=== PATIENT | male | born 1935 | race Caucasian/White ===

== ENCOUNTER 2020-12-21 14:02 | Inpatient (IN) ==
[2020-12-21 15:10] LABS: Bilirubin,Urine Negative (Negative); Blood, Urine Negative (Negative); Glucose,Urine (UA) Negative (Negative); Ketones,Urine Negative (Negative); Mucus,Urine Occasional /LPF (Occasional); Nitrite,Urine Negative (Negative); Protein,Urine Negative; RBC,Urine 1 /HPF (0-4); Squamous Epithelial Cell,Urine Occasional /HPF (0-10); Urine Appearance CLEAR (Clear); Urine Color Straw (Yellow); Urine Specific Gravity 1.006 (1.001-1.035); Urine Urobilinogen < 2.0 EU/DL (0.2-1.0)
[2020-12-21] MEDS ORDERED: ENOXAPARIN 100 MG/ML SYRINGE SUBCUT STA (16:19)
[2020-12-21] MEDS ORDERED: ASPIRIN 325 MG TABLET PO STA (16:19)
[2020-12-21 16:33] LABS: Basophils # 0.1 10*3/uL (0.0-0.2); Basophils % 0.5 % (0.0-0.8); Eosinophils # 0.2 10*3/uL (0.0-0.87); Eosinophils % 1.7 % (0.00-10.9); Hematocrit 44.8 VOL% (42.0-52.0); Hemoglobin 14.1 GM/DL (14.0-18.0); Immature Granulocytes % 0.8 %; Lymphocytes % 16.5 % (21.2-54.2); Mean Corpuscular HGB Conc 31.5 GM/DL (32-36); Mean Corpuscular Volume 91.6 FL (87-102); Mean Platelet Volume 10.5 FL (9.6-12.0); Monocytes % 9.5 % (1.7-12.7); Platelet Count 247 T/CUMM (130-400); Red Blood Count 4.89 MC/CUMM (3.8-5.5); Red Cell Distribution Width 14.8 % (9.3-17.3); White Blood Count 12.1 T/CUMM (4-12)
[2020-12-21 17:51] LABS: INR 1.1
[2020-12-21] MEDS ORDERED: DEXTROSE 50% 25 GM/50 ML VIAL IV PRN (17:51)
[2020-12-21] MEDS ORDERED: ONDANSETRON 4 MG/2 ML VIAL IV PRN (17:51)
[2020-12-21] MEDS ORDERED: GLUCAGON 1 MG VIAL IM PRN (17:51)
[2020-12-21] MEDS ORDERED: METHOCARBAMOL 500 MG TABLET PO PRN (18:00)
[2020-12-21 18:01] LABS: Albumin 3.5 G/DL (3.4-5.0); Bilirubin,Total 0.8 MG/DL (0.20-1.00); Calcium 8.9 MG/DL (8.5-10.1); Osmolality,Calculated 282.4 MOS/KG (273-304); Potassium 3.3 MMOL/L (3.5-5.1); Total Protein 7.9 G/DL (6.4-8.2)
[2020-12-21] MEDS ORDERED: FUROSEMIDE 40 MG/4 ML VIAL IV ONE (19:00)
[2020-12-21] MEDS: AZITHROMYCIN INJ 500 MG in SODIUM CHLORIDE 0.9% 250 ML IV SCH (19:30)
[2020-12-21] MEDS: ALBUTEROL/IPRATROPIUM 3 ML NEB RESP TX SCH (19:40)
[2020-12-21] MEDS ORDERED: methylPREDNISolone SOD SUC 125 MG/2 ML VIAL ONE (20:00)
[2020-12-21] MEDS: cefTRIAXone 1,000 MG in SODIUM CHLORIDE 0.9% 100 ML IV SCH (20:04)
[2020-12-21] MEDS: CLOPIDOGREL 75 MG TABLET PO SCH (20:04)
[2020-12-21] MEDS: methylPREDNISolone SOD SUC 40 MG/1 ML VIAL IV SCH (20:05)
[2020-12-21] MEDS ORDERED: APIXABAN 2.5 MG TABLET PO SCH (21:00)
[2020-12-22 01:16] LABS: Basophils % 0.3 % (0.0-0.8); Eosinophils % 0.3 % (0.00-10.9); Hematocrit 41.7 VOL% (42.0-52.0); Hemoglobin 13.1 GM/DL (14.0-18.0); Immature Granulocytes % 1.5 %; Immature Granulocytes Absolute 0.14 #; Lymphocytes # 0.9 10*3/uL (1.4-4.0); Lymphocytes % 9.4 % (21.2-54.2); Mean Corpuscular HGB Conc 31.4 GM/DL (32-36); Mean Corpuscular Volume 90.5 FL (87-102); Mean Platelet Volume 10.1 FL (9.6-12.0); Monocytes % 2.8 % (1.7-12.7); Neutrophils % 85.7 % (38.7-73.9); Platelet Count 228 T/CUMM (130-400); Red Blood Count 4.61 MC/CUMM (3.8-5.5); Red Cell Distribution Width 14.9 % (9.3-17.3); White Blood Count 9.2 T/CUMM (4-12)
[2020-12-22] MEDS: DONEPEZIL 10 MG TABLET PO SCH ×2 (01:23→20:55)
[2020-12-22] MEDS: DOCUSATE SODIUM 100 MG CAPSULE PO SCH ×2 (01:24→20:55)
[2020-12-22] MEDS: rOPINIRole 1 MG TABLET PO SCH ×2 (01:24→20:54)
[2020-12-22] MEDS: SUCRALFATE 1 GM TABLET PO SCH ×6 (01:24→20:55)
[2020-12-22] MEDS: ATORVASTATIN 20 MG TABLET PO SCH ×2 (01:24→20:55)
[2020-12-22] MEDS: QUEtiapine 25 MG TABLET PO SCH ×3 (01:25→20:55)
[2020-12-22 01:33] LABS: Calcium 8.7 MG/DL (8.5-10.1); Osmolality,Calculated 280.8 MOS/KG (273-304); Potassium 3.9 MMOL/L (3.5-5.1); Thyroid Stimulating Hormone 1.51 uIU/ml (0.358-3.74)
[2020-12-22] MEDS: ALBUTEROL/IPRATROPIUM 3 ML NEB RESP TX SCH ×4 (01:46→20:08)
[2020-12-22] MEDS: methylPREDNISolone SOD SUC 40 MG/1 ML VIAL IV SCH ×3 (02:52→18:30)
[2020-12-22] MEDS ORDERED: FUROSEMIDE 40 MG/4 ML VIAL IV ONE (08:30)
[2020-12-22] MEDS ORDERED: APIXABAN 2.5 MG TABLET PO SCH (09:00)
[2020-12-22] MEDS: FLUTICASONE 110 MCG/PUFF INHALER 12 GM INH SCH (09:30)
[2020-12-22] MEDS ORDERED: lisinopriL 2.5 MG TABLET PO SCH (09:30)
[2020-12-22] MEDS: MONTELUKAST 10 MG TABLET PO SCH (09:38)
[2020-12-22] MEDS: METOPROLOL SUCCINATE XL 25 MG TABLET PO SCH (09:38)
[2020-12-22] MEDS: FUROSEMIDE 40 MG TABLET PO SCH (09:38)
[2020-12-22] MEDS: PANTOPRAZOLE 40 MG TABLET PO SCH (09:38)
[2020-12-22] MEDS ORDERED: FUROSEMIDE 40 MG TABLET PO SCH (12:00)
[2020-12-22] MEDS ORDERED: SIMETHICONE CHEW 125 MG TABLET PO SCH (14:00)
[2020-12-22] MEDS ORDERED: MAGNESIUM SULF RIDER 2 GM/50 ML PREMIX IV PRN (14:13)
[2020-12-22] MEDS ORDERED: diphenhydrAMINE CAP 25 MG CAPSULE PO ONE (14:15)
[2020-12-22] MEDS: FUROSEMIDE 80 MG TABLET PO SCH (15:57)
[2020-12-22] MEDS: SODIUM CHLORIDE 0.9% 1,000 ML IV SCH (15:57)
[2020-12-22] MEDS ORDERED: ENOXAPARIN 40 MG/0.4 ML SYRINGE SUBCUT SCH (16:30)
[2020-12-22] MEDS: CLOPIDOGREL 75 MG TABLET PO SCH (18:29)
[2020-12-22] MEDS: cefTRIAXone 1,000 MG in SODIUM CHLORIDE 0.9% 100 ML IV SCH (18:29)
[2020-12-22] MEDS: AZITHROMYCIN INJ 500 MG in SODIUM CHLORIDE 0.9% 250 ML IV SCH (20:56)
[2020-12-23] MEDS: ALBUTEROL/IPRATROPIUM 3 ML NEB RESP TX SCH ×4 (01:07→19:30)
[2020-12-23] MEDS: methylPREDNISolone SOD SUC 40 MG/1 ML VIAL IV SCH ×3 (03:20→18:32)
[2020-12-23 04:47] LABS: Basophils % 0.1 % (0.0-0.8); Hematocrit 40.9 VOL% (42.0-52.0); Hemoglobin 12.9 GM/DL (14.0-18.0); Immature Granulocytes % 1.2 %; Immature Granulocytes Absolute 0.23 #; Lymphocytes # 1.1 10*3/uL (1.4-4.0); Lymphocytes % 5.9 % (21.2-54.2); Mean Corpuscular HGB Conc 31.5 GM/DL (32-36); Mean Corpuscular Volume 90.3 FL (87-102); Mean Platelet Volume 10.6 FL (9.6-12.0); Monocytes % 3.2 % (1.7-12.7); Neutrophils % 89.6 % (38.7-73.9); Platelet Count 260 T/CUMM (130-400); Red Blood Count 4.53 MC/CUMM (3.8-5.5); Red Cell Distribution Width 14.5 % (9.3-17.3); White Blood Count 18.9 T/CUMM (4-12)
[2020-12-23 05:04] LABS: Calcium 9.1 MG/DL (8.5-10.1); Osmolality,Calculated 284.8 MOS/KG (273-304); Potassium 3.2 MMOL/L (3.5-5.1)
[2020-12-23 05:12] LABS: Risk Ratio 2.92; VLDL Cholesterol 13.2 MG/DL
[2020-12-23] MEDS: POTASSIUM CHLORIDE RIDER 10 MEQ/100 ML PREMIX IV PRN ×2 (05:35→07:13)
[2020-12-23] MEDS ORDERED: DIAZEPAM 5 MG TABLET PO ONE (06:30)
[2020-12-23] MEDS ORDERED: diphenhydrAMINE CAP 25 MG CAPSULE PO ONE (06:30)
[2020-12-23] MEDS ORDERED: POTASSIUM CHLORIDE 20 MEQ TABLET PO ONE (07:04)
[2020-12-23] MEDS ORDERED: HEPARIN/NACL 0.9% 2 UNITS/ML 2,000 UNIT/1,000 ML BAG IV ONE (07:27)
[2020-12-23] MEDS: SUCRALFATE 1 GM TABLET PO SCH ×5 (07:39→21:33)
[2020-12-23] MEDS ORDERED: HYDROmorphone 2 MG/1 ML VIAL ONE (07:51)
[2020-12-23] MEDS ORDERED: MIDAZOLAM 2 MG/2 ML VIAL ONE ×3 (07:52→11:20)
[2020-12-23] MEDS ORDERED: diphenhydrAMINE 50 MG/1 ML VIAL ONE ×2 (08:08→11:39)
[2020-12-23] MEDS ORDERED: HEPARIN 5,000 UNIT/1 ML VIAL ONE (08:22)
[2020-12-23] MEDS ORDERED: predniSONE 20 MG TABLET PO SCH (09:00)
[2020-12-23] MEDS ORDERED: HEPARIN/NACL 0.9% 2 UNITS/ML 1,000 UNIT/500 ML BAG IV ONE (09:31)
[2020-12-23] MEDS ORDERED: TISSUE ADHESIVE 1 EACH APPLICATOR TOP ONE (09:31)
[2020-12-23] MEDS ORDERED: fentaNYL 100 MCG/2 ML VIAL ONE (10:26)
[2020-12-23] MEDS ORDERED: ceFAZolin 1,000 MG VIAL IRRIG ONE (10:29)
[2020-12-23] MEDS ORDERED: ceFAZolin 1,000 MG VIAL ONE (10:34)
[2020-12-23] MEDS: FLUTICASONE 110 MCG/PUFF INHALER 12 GM INH SCH (16:53)
[2020-12-23] MEDS: METOPROLOL SUCCINATE XL 25 MG TABLET PO SCH (16:58)
[2020-12-23] MEDS: MONTELUKAST 10 MG TABLET PO SCH (16:58)
[2020-12-23] MEDS: FUROSEMIDE 80 MG TABLET PO SCH (16:59)
[2020-12-23] MEDS: PANTOPRAZOLE 40 MG TABLET PO SCH (16:59)
[2020-12-23] MEDS: FUROSEMIDE 40 MG TABLET PO SCH (17:08)
[2020-12-23] MEDS: QUEtiapine 25 MG TABLET PO SCH ×2 (17:08→21:33)
[2020-12-23] MEDS: cefTRIAXone 1,000 MG in SODIUM CHLORIDE 0.9% 100 ML IV SCH (18:10)
[2020-12-23] MEDS: AZITHROMYCIN INJ 500 MG in SODIUM CHLORIDE 0.9% 250 ML IV SCH (19:12)
[2020-12-23] MEDS: CLOPIDOGREL 75 MG TABLET PO SCH (19:15)
[2020-12-23] MEDS: SODIUM CHLORIDE 0.9% 1,000 ML IV SCH (20:27)
[2020-12-23] MEDS: DOCUSATE SODIUM 100 MG CAPSULE PO SCH (21:32)
[2020-12-23] MEDS: DONEPEZIL 10 MG TABLET PO SCH (21:33)
[2020-12-23] MEDS: rOPINIRole 1 MG TABLET PO SCH (21:33)
[2020-12-23] MEDS: ATORVASTATIN 20 MG TABLET PO SCH (21:33)
[2020-12-24] MEDS: ALBUTEROL/IPRATROPIUM 3 ML NEB RESP TX SCH ×4 (01:55→18:21)
[2020-12-24] MEDS: methylPREDNISolone SOD SUC 40 MG/1 ML VIAL IV SCH ×3 (03:42→21:03)
[2020-12-24 05:13] LABS: Basophils % 0.1 % (0.0-0.8); Hematocrit 38.5 VOL% (42.0-52.0); Immature Granulocytes % 0.9 %; Immature Granulocytes Absolute 0.12 #; Lymphocytes # 0.8 10*3/uL (1.4-4.0); Lymphocytes % 6.3 % (21.2-54.2); Mean Corpuscular HGB Conc 31.2 GM/DL (32-36); Mean Corpuscular Volume 91.4 FL (87-102); Mean Platelet Volume 10.7 FL (9.6-12.0); Neutrophils % 87.7 % (38.7-73.9); Platelet Count 232 T/CUMM (130-400); Red Blood Count 4.21 MC/CUMM (3.8-5.5); Red Cell Distribution Width 14.9 % (9.3-17.3); White Blood Count 12.7 T/CUMM (4-12)
[2020-12-24 05:36] LABS: Calcium 8.6 MG/DL (8.5-10.1)
[2020-12-24 05:37] LABS: Osmolality,Calculated 286.5 MOS/KG (273-304); Potassium 3.5 MMOL/L (3.5-5.1)
[2020-12-24] MEDS: FLUTICASONE 110 MCG/PUFF INHALER 12 GM INH SCH (09:59)
[2020-12-24] MEDS: MONTELUKAST 10 MG TABLET PO SCH (10:01)
[2020-12-24] MEDS: QUEtiapine 25 MG TABLET PO SCH ×2 (10:01→20:57)
[2020-12-24] MEDS: SUCRALFATE 1 GM TABLET PO SCH ×4 (10:01→20:57)
[2020-12-24] MEDS: METOPROLOL SUCCINATE XL 25 MG TABLET PO SCH (10:02)
[2020-12-24] MEDS: FUROSEMIDE 40 MG TABLET PO SCH (10:05)
[2020-12-24] MEDS: PANTOPRAZOLE 40 MG TABLET PO SCH (10:49)
[2020-12-24] MEDS ORDERED: lisinopriL 5 MG TABLET PO SCH (12:30)
[2020-12-24] MEDS: SACUBITRIL/VALSARTAN 49-51 MG TABLET PO SCH ×2 (16:37→20:56)
[2020-12-24] MEDS: FUROSEMIDE 40 MG/4 ML VIAL IV SCH (16:43)
[2020-12-24] MEDS: SODIUM CHLORIDE 0.9% 1,000 ML IV SCH (16:50)
[2020-12-24] MEDS: rOPINIRole 1 MG TABLET PO SCH (20:56)
[2020-12-24] MEDS: DOCUSATE SODIUM 100 MG CAPSULE PO SCH (20:57)
[2020-12-24] MEDS: DONEPEZIL 10 MG TABLET PO SCH (20:57)
[2020-12-24] MEDS: ATORVASTATIN 40 MG TABLET PO SCH (20:57)
[2020-12-24] MEDS: CLOPIDOGREL 75 MG TABLET PO SCH (20:57)
[2020-12-24] MEDS: cefTRIAXone 1,000 MG in SODIUM CHLORIDE 0.9% 100 ML IV SCH (21:47)
[2020-12-24] MEDS: AZITHROMYCIN INJ 500 MG in SODIUM CHLORIDE 0.9% 250 ML IV SCH (21:48)
[2020-12-25] MEDS: methylPREDNISolone SOD SUC 40 MG/1 ML VIAL IV SCH ×3 (03:56→21:12)
[2020-12-25 04:33] LABS: Basophils % 0.2 % (0.0-0.8); Eosinophils % 0.2 % (0.00-10.9); Hematocrit 41.7 VOL% (42.0-52.0); Hemoglobin 13.1 GM/DL (14.0-18.0); Immature Granulocytes Absolute 0.11 #; Lymphocytes % 8.8 % (21.2-54.2); Mean Corpuscular HGB Conc 31.4 GM/DL (32-36); Mean Corpuscular Volume 90.7 FL (87-102); Mean Platelet Volume 11.4 FL (9.6-12.0); Neutrophils % 82.8 % (38.7-73.9); Platelet Count 197 T/CUMM (130-400); Red Cell Distribution Width 14.8 % (9.3-17.3); White Blood Count 11.2 T/CUMM (4-12)
[2020-12-25 04:54] LABS: Calcium 8.2 MG/DL (8.5-10.1); Potassium 3.5 MMOL/L (3.5-5.1)
[2020-12-25] MEDS: ALBUTEROL/IPRATROPIUM 3 ML NEB RESP TX SCH ×4 (06:36→18:40)
[2020-12-25] MEDS: SACUBITRIL/VALSARTAN 49-51 MG TABLET PO SCH ×2 (13:04→20:57)
[2020-12-25] MEDS: QUEtiapine 25 MG TABLET PO SCH ×2 (13:05→20:57)
[2020-12-25] MEDS: FLUTICASONE 110 MCG/PUFF INHALER 12 GM INH SCH (13:05)
[2020-12-25] MEDS: PANTOPRAZOLE 40 MG TABLET PO SCH (13:05)
[2020-12-25] MEDS: MONTELUKAST 10 MG TABLET PO SCH (13:05)
[2020-12-25] MEDS: SUCRALFATE 1 GM TABLET PO SCH ×4 (13:05→20:57)
[2020-12-25] MEDS: METOPROLOL SUCCINATE XL 25 MG TABLET PO SCH (13:05)
[2020-12-25] MEDS: FUROSEMIDE 40 MG/4 ML VIAL IV SCH ×2 (13:07→17:13)
[2020-12-25] MEDS: DOCUSATE SODIUM 100 MG CAPSULE PO SCH (20:57)
[2020-12-25] MEDS: rOPINIRole 1 MG TABLET PO SCH (20:57)
[2020-12-25] MEDS: CLOPIDOGREL 75 MG TABLET PO SCH (20:57)
[2020-12-25] MEDS: DONEPEZIL 10 MG TABLET PO SCH (20:57)
[2020-12-25] MEDS: ATORVASTATIN 40 MG TABLET PO SCH (20:57)
[2020-12-25] MEDS: AZITHROMYCIN INJ 500 MG in SODIUM CHLORIDE 0.9% 250 ML IV SCH (22:22)
[2020-12-25] MEDS: cefTRIAXone 1,000 MG in SODIUM CHLORIDE 0.9% 100 ML IV SCH (22:22)
[2020-12-26] MEDS: ALBUTEROL/IPRATROPIUM 3 ML NEB RESP TX SCH ×5 (01:00→19:25)
[2020-12-26] MEDS: methylPREDNISolone SOD SUC 40 MG/1 ML VIAL IV SCH ×2 (03:04→11:33)
[2020-12-26 06:03] LABS: Basophils % 0.1 % (0.0-0.8); Hematocrit 41.9 VOL% (42.0-52.0); Hemoglobin 13.3 GM/DL (14.0-18.0); Immature Granulocytes % 1.3 %; Immature Granulocytes Absolute 0.18 #; Lymphocytes # 0.9 10*3/uL (1.4-4.0); Lymphocytes % 6.9 % (21.2-54.2); Mean Corpuscular HGB Conc 31.7 GM/DL (32-36); Mean Platelet Volume 10.3 FL (9.6-12.0); Monocytes % 5.5 % (1.7-12.7); Neutrophils % 86.2 % (38.7-73.9); Platelet Count 228 T/CUMM (130-400); Red Blood Count 4.71 MC/CUMM (3.8-5.5); Red Cell Distribution Width 14.6 % (9.3-17.3); White Blood Count 13.7 T/CUMM (4-12)
[2020-12-26 06:28] LABS: Calcium 8.6 MG/DL (8.5-10.1); Osmolality,Calculated 292.4 MOS/KG (273-304); Potassium 3.5 MMOL/L (3.5-5.1)
[2020-12-26] MEDS: SUCRALFATE 1 GM TABLET PO SCH ×4 (08:00→22:01)
[2020-12-26] MEDS: QUEtiapine 25 MG TABLET PO SCH ×2 (11:24→22:02)
[2020-12-26] MEDS: PANTOPRAZOLE 40 MG TABLET PO SCH (11:24)
[2020-12-26] MEDS: MONTELUKAST 10 MG TABLET PO SCH (11:25)
[2020-12-26] MEDS: METOPROLOL SUCCINATE XL 25 MG TABLET PO SCH (11:25)
[2020-12-26] MEDS: FUROSEMIDE 40 MG/4 ML VIAL IV SCH ×2 (11:27→16:54)
[2020-12-26] MEDS: SACUBITRIL/VALSARTAN 49-51 MG TABLET PO SCH ×2 (11:32→22:01)
[2020-12-26] MEDS: INSULIN LISPRO 100 UNIT/ML SUBCUT SCH ×3 (11:33→22:02)
[2020-12-26] MEDS: FLUTICASONE 110 MCG/PUFF INHALER 12 GM INH SCH (17:54)
[2020-12-26] MEDS: rOPINIRole 1 MG TABLET PO SCH (22:00)
[2020-12-26] MEDS: DONEPEZIL 10 MG TABLET PO SCH (22:01)
[2020-12-26] MEDS: DOCUSATE SODIUM 100 MG CAPSULE PO SCH (22:01)
[2020-12-26] MEDS: ATORVASTATIN 40 MG TABLET PO SCH (22:02)
[2020-12-26] MEDS: CLOPIDOGREL 75 MG TABLET PO SCH (22:02)
[2020-12-26] MEDS: cefTRIAXone 1,000 MG in SODIUM CHLORIDE 0.9% 100 ML IV SCH (23:21)
[2020-12-26] MEDS: AZITHROMYCIN INJ 500 MG in SODIUM CHLORIDE 0.9% 250 ML IV SCH (23:21)
[2020-12-27] MEDS: ALBUTEROL/IPRATROPIUM 3 ML NEB RESP TX SCH ×3 (00:18→12:00)
[2020-12-27 05:16] LABS: Basophils % 0.3 % (0.0-0.8); Eosinophils # 0.1 10*3/uL (0.0-0.87); Eosinophils % 0.4 % (0.00-10.9); Hematocrit 44.3 VOL% (42.0-52.0); Immature Granulocytes % 2.4 %; Immature Granulocytes Absolute 0.35 #; Lymphocytes # 2.6 10*3/uL (1.4-4.0); Lymphocytes % 17.7 % (21.2-54.2); Mean Corpuscular HGB Conc 31.6 GM/DL (32-36); Mean Corpuscular Volume 90.2 FL (87-102); Mean Platelet Volume 10.8 FL (9.6-12.0); Monocytes % 8.2 % (1.7-12.7); Platelet Count 207 T/CUMM (130-400); Red Blood Count 4.91 MC/CUMM (3.8-5.5); Red Cell Distribution Width 14.8 % (9.3-17.3); White Blood Count 14.4 T/CUMM (4-12)
[2020-12-27 05:44] LABS: Calcium 8.7 MG/DL (8.5-10.1); Osmolality,Calculated 282.7 MOS/KG (273-304); Potassium 3.1 MMOL/L (3.5-5.1)
[2020-12-27] MEDS ORDERED: POTASSIUM CHLORIDE 20 MEQ TABLET PO ONE (07:42)
[2020-12-27 08:41] LABS: Lymphocytes 20 % (20-55); Segmented Neutrophils 77 % (50-85); Total Cells Counted 100
[2020-12-27 08:42] LABS: Hypochromasia 1+; Microcytosis 1+; Ovalocytes Slight; Platelet Estimate Normal
[2020-12-27] MEDS ORDERED: POTASSIUM CHLORIDE 20 MEQ TABLET PO SCH (09:00)
[2020-12-27] MEDS ORDERED: predniSONE 20 MG TABLET PO SCH (09:00)
[2020-12-27] MEDS: SUCRALFATE 1 GM TABLET PO SCH ×2 (09:38→12:01)
[2020-12-27] MEDS: QUEtiapine 25 MG TABLET PO SCH (09:38)
[2020-12-27] MEDS: PANTOPRAZOLE 40 MG TABLET PO SCH (09:38)
[2020-12-27] MEDS: METOPROLOL SUCCINATE XL 25 MG TABLET PO SCH (09:38)
[2020-12-27] MEDS: MONTELUKAST 10 MG TABLET PO SCH (09:38)
[2020-12-27] MEDS: FUROSEMIDE 40 MG/4 ML VIAL IV SCH (09:39)
[2020-12-27] MEDS: INSULIN LISPRO 100 UNIT/ML SUBCUT SCH ×2 (09:39→12:01)
[2020-12-27] MEDS: SACUBITRIL/VALSARTAN 49-51 MG TABLET PO SCH (09:39)
[2020-12-27] MEDS: FLUTICASONE 110 MCG/PUFF INHALER 12 GM INH SCH (11:27)
[2020-12-27 15:06] VITALS: BP 103/74
== END 2020-12-27 14:57 | disposition hospice, home (50) | DRG 242 ==
LOC: N.EDINP 14:02 → N.ED 14:02 → N.TELES 20:51 → SUATTDRO 12-23 09:49
PROVIDERS: ADMIT Internal Medicine; ATTEND Internal Medicine